=== PATIENT | female | born 1995 | race Caucasian/White ===

== ENCOUNTER → 2017-12-05 15:03 | Outpatient (CLI) | payer BC, SELFPAY ==
[2017-12-08 12:43] LABS: HPV Reflexed? NOT INDICATED
== END ==
PROVIDERS: Visit Provider Nurse Practitioner Women's Health
DX: Z12.4 Encounter for screening for malignant neoplasm of cervix (principal)
CPT/HCPCS: 88175; G0145

== ENCOUNTER → 2020-03-19 13:25 | Outpatient (CLI) | payer OTHER, SELFPAY | PROVIDERS: PCP Internal Medicine; Referring Provider Family Medicine; Visit Provider Family Medicine | DX: Z11.59 Encounter for screening for other viral diseases (principal) | CPT/HCPCS: 87635; G2023; U0003 ==

== ENCOUNTER 2020-12-30 12:37 | Day surgery (SDC) | payer BC, SELFPAY ==
--- NOTE | 2020-12-27 12:04 | PCM.HPOB.BLA ---
- Problem List (1) Cervical polyp Status: Acute (2) DUB (dysfunctional uterine bleeding) Status: Acute History and Physical Date of Admission: 12/30/20 DATE OF SERVICE: December 27, 2020 ? PROBLEM:?DUB, cervical polyp ? DIAGNOSIS:?DUB, cervical poylp ? PAST SURGICAL HISTORY:? PAST SURGICAL HISTORYExpand by Default PAST SURGICAL HISTORY Procedure Laterality Date ? KYLEENA IUD ? 12/31/2019 ? removed 08/06/20 ? PAST SURGICAL HISTORY OF ? ? ? wisdom teeth ? PAST MEDICAL HISTORY:? PAST MEDICAL HISTORYExpand by Default PAST MEDICAL HISTORY Diagnosis Date ? Irregular menses ? ? SUBJECTIVE:?Constant bleeding. ? SOCIAL HISTORY:? SOCIAL HISTORYExpand by Default Social History ? Tobacco Use ? Smoking status: Never Smoker ? Smokeless tobacco: Never Used Substance Use Topics ? Alcohol use: No ? Drug use: No ? CHANGE MANAGEMENT CONSULTANT HISTORY: ? Pelvic US RESULT: Uterus size: 9.5 x 5.2 x 3.9 cm ?-Orientation: Anteverted ?-Myometrium: Normal sonographic appearance. ?-Endometrial echo complex: 8 mm. ?Hypervascularity along the entire endometrium is demonstrated. ?-Cervix: There is a 2.7 x 2.9 x 1.6 cm echogenic mass with vascularity. Right ovary: 3.5 x 2.7 x 2.3 cm ?Normal sonographic appearance with multiple follicles. Left ovary: 3.3 x 2.6 x 2.6 cm ?Normal sonographic appearance with multiple follicles. Pelvis free fluid: No significant free fluid in the cul-de-sac. ? ALLERGIES ALLERGIES Allergen Reactions ? Amoxicillin ? Hives Current Outpatient Medications on File Prior to Visit Medication Sig ? norgestimate 0.25 mg-ethinyl estradiol 35 mcg (SPRINTEC) 0.25-35 mg-mcg per tablet Take 1 tablet by mouth once daily. No current facility-administered medications on file prior to visit. ? ? OBJECTIVE: ? VITALS:? BP 120/80 ? Pulse 74 ? Resp 16 ? Ht 5' 2 (1.575 m) ? Wt 212 lb 9.6 oz (96.4 kg) ? LMP 11/23/2020 (Exact Date) ? BMI 38.89 kg/m? ? HEENT: ?Normocephalic, atraumatic, Mucus membranes moist without lesions. ? NECK: ???Soft and Supple. ?No adenopathy , thyromegaly or bruits. ? SKIN: No lesions. ? CHEST: Clear to auscultation. ?No wheezes or rales. ?Good air exchange. ? HEART: Regular rate and rhythm ?No S3 or S4. ?No gallops or rubs. ? BACK: Nontender with no CVA tenderness. ? ABDOMEN: Soft, non-tender, non-distended, no masses, no hepatosplenomegaly. ? LOWER EXTREMITIES: There was no pitting edema, no palpable cords and no skin changes. ? ? ? ASSESSMENT:?cervical polyp causing DUB ? PLAN:?Discussed hysteroscopy with polypectomy in detail. Discussed increased risk of bleeding complications from the surgery given the size of the polyp. Also discussed chance of not being able to complete hysteroscopy given cervical dilation.?The rationale for the proposed surgery was discussed in addition to risks, benefits, and alternatives. ?General pre- and post-operative care was reviewed. ?Questions were answered. ?After discussion, the patient indicated a desire to proceed with the planned surgery. ? Atiya Jarvis,?DO
[2020-12-30] VITALS (7 sets, daily range): BP systolic 113–123; BP diastolic 58–88; PULSE 101–116; RESP 16–109; TEMP 36.6–37.1; O2SAT 98–100; BMI 38.0
--- NOTE | 2020-12-30 | EMB_PTH ---
PATIENT: MANDO CARPENTER [place] [facility] [id number] AGE/SX: 25/F ROOM: RE12/30/[address]: Dr. Atiya Jarvis DO : 1995 BED: DIS: 12/30/2020 SPEC #: [id number] RECD: 12/30/20 15:58 STATUS: JONNIE REJhon #: [id number] BREEZY: 12/30/20 00:[address]: Atiya Jarvis DEPT: SURGICAL PATHOLOGY RECD BY: Tico Noriega ENTERED: 12/31/20 07:54 SP TYPE: ENDOM BX/C MARIA FERNANDA DR: Dr. Rae Krause DO Tissues: Endometrium, NOS Procedures: Surgery Specimen Level IV HEADER OPERATION: Hysteroscopy, cervical polyp removal, Symphion PRE-OP DIAGNOSIS: Cervical polyp; endometrial polyp TISSUE SUBMITTED: Endometrial polyp MICROSCOPIC DIAGNOSIS Endometrial polyp: Consistent with submucosal leiomyoma (2.5 cm in greatest dimension). See comment. VISHNU:ryan 01/03/2021 COMMENT The overlying epithelium consists of endometrial and endocervical epithelium with squamous metaplasia. Scant detached minute fragments of benign endometrial tissue are also noted. MICROSCOPIC DESCRIPTION Slides are reviewed. GROSS DESCRIPTION Received in fixative is one container labeled with the patient's name and designated endometrial polyp. The specimen consists of one irregular fragment of light armendariz, indurated soft tissue that measures 2.5 x 2.5 x 2 cm. Sections of this mass reveals armendariz whorled cut surfaces without areas of hemorrhage, necrosis or cystic degeneration. Also present in the container are multiple fragments of armendariz soft tissue measuring in aggregate 2 x 1 x 0.2 cm. [employer] sections are submitted in four cassettes as follows: 1 - smaller fragments of tissue, 2-4 - nodular piece of tissue. Smaller fragments of tissue are submitted in entirety. / Denise 12/31/20 TC:1 CPT: 08065
[2020-12-30 13:14] LABS: Hematocrit 35.2 % (37-47); Hemoglobin 10.9 g/dL (12.0-15.0); Mean Corpuscular Hgb 24.8 pg (27.0-32.0); Mean Corpuscular Volume 80.2 fL (81-99); Mean Platelet Vol. 8.8 fl (6.2-12.0); Platelet Count 412 K/mm3 (150-450); RBC Distribution Width CV 14.3 % (11.6-14.6); Red Blood Count 4.39 M/mm3 (4.2-5.4); White Blood Count 8.7 K/mm3 (4.4-11.0)
[2020-12-30 13:17] LABS: Internal QC Validated? YES +Cl - CLEAR BKGD; Pregnancy, Urine Negative Negative
[2020-12-30] MEDS: Lactated Ringers 1,000 ML 100 ML IV ×2 (13:19→15:41)
[2020-12-30] MEDS: Lidocaine 1% /Epi 1:100 (20ml) 20 ML Vial (15:14)
--- NOTE | 2020-12-30 15:20 | DCINST_ITS ---
Discharge Diet: No Restrictions Discharge Activity: May Not Drive - for 24 hours after surgery, May Shower May resume sexual activity in: 1 week - Nothing in the vagina for 1 week while you are bleeding. No tampons, intercourse, hot tubs, tub baths, or pools. Weight Bearing Status: Weight bearing as tolerated Lifting Restrictions: No restrictions Call your doctor if you observe: Fever of 101 or Higher, Inability to urinate, Inability to have a bowel movement, Using more than one pad per hour, Shortness of breath, Dizziness, Fainting spells, Swelling in the ankles, Chest pain, Increased palpitations (irregular heartbeat), Calf discomfort, Uncontrolled pain, - - You will have cramping and vaginal bleeding. The bleeding initially will be similar to a period, and it should lighten quickly to light bleeding and spotting. If at any point you are saturating 1 pad every 1 hour for 2 hours or more, you need to call and come into the office or ER. Allergies/Adverse Reactions: Allergies amoxicillin Allergy (Mild, Verified 12/30/20 13:14) Pain in joints Medications to take at Discharge levonorgestrel 0.15 mg-ethinyl estradiol 0.03 mg tablet 1 tab PO QDAY #84 tab 03/20/18 Cholecalciferol (Vitamin D3) [Vitamin D3] 2,000 unit PO DAILY 12/23/20 Famotidine [Acid Controller] 20 mg PO DAILY 12/23/20 Ferrous Sulfate [Iron] 325 mg PO DAILY 12/23/20 Orders to be completed after discharge: Type & Screen - PAT ONLY Time Frame: 12/30/20, Facility: [facility], [place], Location: Laboratory Primary Care Physician: Rae Krause DO [Primary Care Provider] - Test Results: Test results from this visit will be discussed in further detail at your follow- up appointment, if applicable. Please Follow Up With: Atiya Jarvis DO When: 1 week
--- NOTE | 2020-12-30 15:22 | OP.PCM_ITS ---
Problem List (1) DUB (dysfunctional uterine bleeding) Status: Acute (2) Uterine polyp Status: Acute Report of Operation Date of Procedure: 12/30/20 Pre-Operative Diagnosis: DUB, prolapsing cervical polyp Post-Operative Diagnosis: DUB, prolapsing uterine polyp Surgery/Procedure Performed:: Polypectomy, hysteroscopy Description of Surgical Findings:: The stalk of the polyp was noted to be within the uterus on hysteroscopy, and along the left lateral lower uterine wall. The polyp was about 3-4 cm in size. The cervix was about 4 cm dilated. No other polyps were noted. The uterine cavity was otherwise normal appearing and bilateral tubal ostia were visualized. Type of Anesthesia:: Local MAC Special Medications: None Specimen's removed: Polyp Drains: None Estimated Blood Loss (mL): < 50 cc Fluids Replaced: Fluid deficit was about 200 cc - copious fluid on the floor and 300 in bag Description of Procedure: Start time 1444 Stop time 1516 The patient was taken to the operating room where MAC anesthesia was induced and found to be adequate. She was prepped and draped in dorsal lithotomy position using yellowfin stirrups. A weighted speculum was placed exposing the cervix. The anterior lip of the cervix was grasped with a ring forceps. The cervix was noted to be about 3 to 4 cm dilated and there was a 3 to 4 cm polyp noted prolapsing through the cervix. An Allis clamp was placed on the polyp for retraction. The polyp was retracted and the stalk was visualized. 1% lidocaine with epinephrine was injected into the stalk. Using 3-0 Vicryl the stalk was tied off in two locations. Using curved Mcknight scissors the stalk was transected in between where it was suture ligated. The polyp was removed and sent to pathology for review. Another ring forceps was placed on the cervix to lessen the dilation of the cervix, and allow for uterine distension with hysteroscopy. A hysteroscope was advanced to the fundus of the uterus and the uterus was distended with normal saline. The stalk was noted to be originating from the left lateral lower uterine wall. The hysteroscope was removed. A Symphion hysteroscope was then advanced to the fundus of the uterus. The stalk was again noted. Using the resecting device of the Symphion the stalk was then resected. The stalk was made hemostatic using coagulation on the resecting device of the Symphion. Hysteroscope was then removed. Bleeding was hemostatic. All instruments removed from the vagina. A vaginal sweep was performed. Instrument, sponge, and needle counts. Patient was taken to the recovery room in stable co ndition. Grafts/Implants Used: None - Complications None - Admit VTE Documentation VTE Present on Admission: No VTE Mechan Device Prophylaxis: SCD's VTE Pharm Prophylaxis ordered?: No
== END 2020-12-30 16:19 | disposition home or self-care (01) ==
LOC: SDC 12:37 → AC 12:38
PROVIDERS: PCP Internal Medicine; Referring Provider Obstetrics & Gynecology; Visit Provider Obstetrics & Gynecology
PROC: 0UB98ZZ Excision of Uterus, Via Natural or Artificial Opening Endoscopic (ICD-10-PCS; CPT 58558; principal; 2020-12-30 14:05)
DX: N84.0 Polyp of corpus uteri (principal); N93.8 Other specified abnormal uterine and vaginal bleeding; Z20.828 Contact with and (suspected) exposure to other viral communicable diseases
CPT/HCPCS: 58558; 81025; 85027; 86850; 86900; 86901; 87426; 88305; C9803; J7120